=== PATIENT | female | born 1995 | race Caucasian/White ===

== ENCOUNTER 2020-07-15 14:44 | Inpatient (IN) | payer BC, OTHER ==
[~2020-07-15] VITALS: Ht 165.1 cm; Wt 123.0 kg
[2020-08-21] MEDS ORDERED: OXYTOCIN 30U/ 0.9% NaCL 500ML 500 ML IV PRN (03:38)
[2020-08-21] MEDS ORDERED: OXYTOCIN 30U/ 0.9% NaCL 500ML 500 ML IV ONE (03:38)
[2020-08-21] MEDS ORDERED: D5%-LACTATED RINGERS 1,000 ML IV SCH (03:38)
[2020-08-21] MEDS ORDERED: NEWBORN KIT ONE (03:48)
[2020-08-21] MEDS ORDERED: LIDOCAINE 1%, 20ML ONE (03:48)
[2020-08-21] MEDS ORDERED: MISOPROSTOL 200 MCG TABLET ONE (03:48)
[2020-08-21] MEDS ORDERED: OXYTOCIN 30U/ 0.9% NaCL 500ML 500 ML ONE (03:48)
[2020-08-21 03:59] VITALS: BP 128/66
[2020-08-21] MEDS ORDERED: CALCIUM CARBONATE 500 MG TAB.CHEW PO PRN ×2 (04:00→20:00)
[2020-08-21] MEDS ORDERED: ONDANSETRON 2MG/ML, 2ML IVPush PRN ×3 (04:00→20:00)
[2020-08-21] MEDS ORDERED: FENTANYL PF 100 MCG/2ML IV PRN ×2 (04:00→20:00)
[2020-08-21] MEDS ORDERED: FENTANYL PF 100 MCG/2ML IVPush PRN (04:00)
[2020-08-21] MEDS ORDERED: TERBUTALINE 1 MG/ML, 1ML SQ PRN (04:00)
[2020-08-21] MEDS ORDERED: TERBUTALINE 1 MG/ML, 1ML IVPush PRN (04:00)
[2020-08-21 04:09] LABS: BASOPHILS # (AUTO) 0.03 x10^3/uL (0-0.1); BASOPHILS % (AUTO) 0 % (0-1); EOSINOPHILS # (AUTO) 0.17 x10^3/uL (0-0.4); EOSINOPHILS % (AUTO) 2 % (1-7); LYMPHOCYTES # (AUTO) 1.52 x10^3/uL (1-3.4); LYMPHOCYTES % (AUTO) 18 % (22-44); MD NO; MEAN CORPUSCULAR HEMOGLOBIN 30.9 pg (27.0-34.8); MEAN CORPUSCULAR HGB CONC 33.3 g/dL (32.4-35.8); MEAN CORPUSCULAR VOLUME 92.7 fL (80-100); MEAN PLATELET VOLUME 9.4 fL (7.4-10.4); MONOCYTES # (AUTO) 0.51 x10^3/uL (0.2-0.8); MONOCYTES % (AUTO) 6 % (2-9); NEUTROPHILS # (AUTO) 6.47 x10^3/uL (1.8-6.8); NEUTROPHILS % (AUTO) 75 % (42-75); PLATELET COUNT 203 x10^3/uL (130-400); RED BLOOD COUNT 4.37 x10^6/uL (3.82-5.3); RED CELL DISTRIBUTION WIDTH 13.4 % (9.6-15.2)
[2020-08-21] MEDS ORDERED: MISOPROSTOL 25 MCG TABLET ONE ×2 (04:48→08:49)
[2020-08-21] MEDS: MISOPROSTOL 25 MCG TABLET VG PRN ×2 (04:49→08:54)
[2020-08-21 07:06] VITALS: BP 121/67
[2020-08-21] MEDS: LACTATED RINGERS 1,000 ML IV SCH ×5 (10:09→20:59)
[2020-08-21] MEDS ORDERED: FENTANYL/BUPIV./NS/PF 250 ML EPIDCONT ONE (15:23)
[2020-08-21] MEDS ORDERED: BUPIVACAINE 0.25% ONE (15:23)
[2020-08-21] MEDS ORDERED: FENTANYL/BUPIV./NS/PF 250 ML EPIDCONT SCH (16:10)
[2020-08-21] MEDS ORDERED: LACTATED RINGERS 1,000 ML IV SCH (16:10)
[2020-08-21] MEDS ORDERED: DIPHENHYDRAMINE 50 MG/ML, 1ML IVPush PRN ×2 (16:30→20:00)
[2020-08-21] MEDS ORDERED: NALOXONE 0.4 MG/ML, 1ML IVPush PRN (16:30)
[2020-08-21] MEDS ORDERED: EPHEDRINE 50 MG/ML, 1ML IVPush PRN ×2 (16:30→20:00)
[2020-08-21] MEDS ORDERED: LACTATED RINGERS 1,000 ML IVBOLUS PRN (16:30)
[2020-08-21] MEDS ORDERED: CEFAZOLIN 1,000 MG ONE ×3 (17:59→18:00)
[2020-08-21] MEDS ORDERED: LIDOCAINE/MPF 2%-EPI 1:200K, 20 ML ONE (17:59)
[2020-08-21] MEDS ORDERED: OXYTOCIN 10 UNITS/ML, 1ML ONE ×4 (18:00)
[2020-08-21] MEDS ORDERED: KETOROLAC 30 MG/1 ML ONE (18:00)
[2020-08-21] MEDS ORDERED: SODIUM BICARBONATE 1 MEQ/ML, 50ML VIAL ONE (18:00)
[2020-08-21] MEDS ORDERED: METOCLOPRAMIDE 5 MG/ML, 2ML ONE (18:19)
[2020-08-21] MEDS ORDERED: METOCLOPRAMIDE 5 MG/ML, 2ML IV ONE (18:30)
[2020-08-21] MEDS ORDERED: SODIUM CITRATE/CITRIC ACID 30 ML UDC PO ONE (18:30)
[2020-08-21] MEDS ORDERED: AZITHROMYCIN 500 MG in SODIUM CHLORIDE 0.9% 250 ML IV ONE (18:30)
[2020-08-21] MEDS ORDERED: LACTATED RINGERS 1,000 ML IVBOLUS ONE (18:30)
[2020-08-21] MEDS ORDERED: EPHEDRINE 50 MG/ML, 1ML ONE (18:50)
[2020-08-21] MEDS ORDERED: FENTANYL PF 100 MCG/2ML ONE (19:00)
[2020-08-21] MEDS: OXYTOCIN 30U/ 0.9% NaCL 500ML 500 ML IV SCH (19:37)
[2020-08-21] MEDS ORDERED: MEPERIDINE/PF 50 MG/ML ONE (19:42)
[2020-08-21] MEDS: MEPERIDINE/PF 25MG/0.5ML IVPush PRN ×2 (19:46→20:07)
[2020-08-21] MEDS ORDERED: RHOGAM FROM BLOOD BANK 1 NOTE EA IM/IV ONE (20:00)
[2020-08-21] MEDS ORDERED: OXYcodone 5 MG/5 ML ORAL.SOL UDC PO PRN (20:00)
[2020-08-21] MEDS ORDERED: morphine SULFATE 10 MG/ML, 1ML IVPush PRN (20:00)
[2020-08-21] MEDS ORDERED: METHYLERGONOVINE 0.2 MG/ML IM PRN (20:00)
[2020-08-21] MEDS ORDERED: CARBOPROST TROMETHAMINE 250 MCG/ML, 1ML IM PRN (20:00)
[2020-08-21] MEDS ORDERED: OXYcodone/APAP 5/325MG TABLET PO PRN (20:00)
[2020-08-21] MEDS ORDERED: ONDANSETRON 2MG/ML, 2ML IV PRN (20:00)
[2020-08-21] MEDS ORDERED: LABETALOL 5MG/ML, 20ML IV PRN (20:00)
[2020-08-21] MEDS ORDERED: ACETAMINOPHEN 325 MG TABLET PO PRN ×2 (20:00)
[2020-08-21] MEDS ORDERED: MORPHINE SULFATE 4 MG/ML, 1ML IVPush PRN (20:00)
[2020-08-21] MEDS ORDERED: MISOPROSTOL 200 MCG TABLET PR PRN (20:00)
[2020-08-21] MEDS ORDERED: morphine SULFATE 10 MG/ML, 1ML IM PRN (20:00)
[2020-08-21] MEDS ORDERED: EPHEDRINE 50 MG/ML, 1ML IM PRN (20:00)
[2020-08-21 22:23] VITALS: BP 121/76
[2020-08-22] MEDS: SIMETHICONE 80 MG CHEW TAB PO PRN ×3 (02:46→17:43)
[2020-08-22] MEDS: OXYcodone/APAP 5/325MG TABLET PO PRN ×3 (02:46→17:43)
[2020-08-22] MEDS: IBUPROFEN 600 MG TABLET PO PRN ×3 (02:49→17:43)
[2020-08-22 03:30] LABS: BASOPHILS # (AUTO) 0.05 x10^3/uL (0-0.1); BASOPHILS % (AUTO) 1 % (0-1); EOSINOPHILS # (AUTO) 0.19 x10^3/uL (0-0.4); EOSINOPHILS % (AUTO) 2 % (1-7); LYMPHOCYTES # (AUTO) 1.35 x10^3/uL (1-3.4); LYMPHOCYTES % (AUTO) 13 % (22-44); MD NO; MEAN CORPUSCULAR HEMOGLOBIN 30.8 pg (27.0-34.8); MEAN CORPUSCULAR HGB CONC 33.7 g/dL (32.4-35.8); MEAN CORPUSCULAR VOLUME 91.4 fL (80-100); MEAN PLATELET VOLUME 9.6 fL (7.4-10.4); MONOCYTES # (AUTO) 0.54 x10^3/uL (0.2-0.8); MONOCYTES % (AUTO) 5 % (2-9); NEUTROPHILS # (AUTO) 8.07 x10^3/uL (1.8-6.8); NEUTROPHILS % (AUTO) 79 % (42-75); PLATELET COUNT 183 x10^3/uL (130-400); RED BLOOD COUNT 4.02 x10^6/uL (3.82-5.3); RED CELL DISTRIBUTION WIDTH 12.9 % (9.6-15.2)
[2020-08-22] MEDS: LACTATED RINGERS 1,000 ML IV SCH ×5 (03:37→19:37)
[2020-08-22 04:01] VITALS: BP 122/75
[2020-08-22] MEDS: OXYTOCIN 30U/ 0.9% NaCL 500ML 500 ML IV SCH ×2 (05:37→15:37)
[2020-08-22 07:15] VITALS: BP 114/69
[2020-08-22] MEDS: DOCUSATE 100 MG CAPSULE PO PRN (07:52)
[2020-08-22] MEDS: PRENATAL VIT/IRON/FA 1 EACH TABLET PO SCH (07:52)
[2020-08-22] MEDS: ENOXAPARIN 40 MG/0.4 ML SQ SCH (07:52)
[2020-08-22 11:40] VITALS: BP 123/85
[2020-08-22 16:34] VITALS: BP 123/81
[2020-08-22] MEDS ORDERED: MEASLES,MUMPS&RUBELLA VACC/PF 0.5 ML SQ-VACC ONE (17:00)
[2020-08-22 19:45] VITALS: BP 126/84
[2020-08-23] MEDS: IBUPROFEN 600 MG TABLET PO PRN ×3 (01:12→13:20)
[2020-08-23] MEDS: OXYcodone/APAP 5/325MG TABLET PO PRN ×3 (01:13→13:20)
[2020-08-23] MEDS: OXYTOCIN 30U/ 0.9% NaCL 500ML 500 ML IV SCH ×2 (01:37→11:37)
[2020-08-23] MEDS: LACTATED RINGERS 1,000 ML IV SCH ×4 (01:37→11:37)
[2020-08-23] MEDS: ENOXAPARIN 40 MG/0.4 ML SQ SCH (07:30)
[2020-08-23 07:35] VITALS: BP 135/85
[2020-08-23] MEDS ORDERED: DIPH,PERTUSS(ACELL),TET VAC/PF NC IM-VACC ONE (07:35)
[2020-08-23] MEDS: DOCUSATE 100 MG CAPSULE PO PRN (07:40)
[2020-08-23] MEDS: PRENATAL VIT/IRON/FA 1 EACH TABLET PO SCH (07:40)
[2020-08-23] MEDS: SIMETHICONE 80 MG CHEW TAB PO PRN (07:40)
[2020-08-23] MEDS ORDERED: OXYC-302 PO (09:39)
[2020-08-23] MEDS ORDERED: IBUP-1222 PO (09:40)
== END 2020-08-23 14:55 | disposition home or self-care (01) | DRG 788 ==
LOC: LDIP 08-21 03:36 → 2NW 08-21 21:20
PROVIDERS: ADMIT Obstetrics & Gynecology; ATTEND Obstetrics & Gynecology
PROC: 10D00Z1 Extraction of Products of Conception, Low, Open Approach (ICD-10-PCS; principal; 2020-08-21)
DX: O76 Abnormality in fetal heart rate and rhythm complicating labor and delivery (principal); O99.214 Obesity complicating childbirth; E66.01 Morbid (severe) obesity due to excess calories; O69.81X0 Labor and delivery complicated by cord around neck, without compression, not applicable or unspecified; Z3A.40 40 weeks gestation of pregnancy; Z37.0 Single live birth; Z20.828 Contact with and (suspected) exposure to other viral communicable diseases
CPT/HCPCS: 36415; J3490; 85025; 86592; 86850; 86900; G0378; J0456; J0690; J1650; J1885; J2175; J3010; J2590; J2765; J7050; J7120

== ENCOUNTER → 2020-08-01 | Outpatient (CLI) | payer BC, OTHER | END | disposition home or self-care (01) | LOC: STAR 13:48 | PROVIDERS: ATTEND Obstetrics & Gynecology | DX: Z01.818 Encounter for other preprocedural examination (principal); Z20.828 Contact with and (suspected) exposure to other viral communicable diseases | CPT/HCPCS: 36415; 87635 ==